=== PATIENT | female | born 2000 | race Caucasian/White ===

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

== ENCOUNTER 2021-08-31 11:13 | Emergency (ER) | payer OTHER ==
[~2021-08-31] VITALS: Ht 170.1 cm; Wt 75.7 kg
[2021-08-31 12:04] LABS: BASO % 0.4 % (0.0-1.0); EOS # 0.1 10*3/uL (0.0-0.4); EOS % 1.1 % (1.0-4.0); HEMATOCRIT 44.4 % (37.0-47.0); LYMPH # 0.8 10*3/uL (1.3-4.4); LYMPH % 6.9 % (27.0-41.0); MEAN CELL VOLUME 90.2 fl (81.0-99.0); MEAN CORPUSCULAR HGB 30.7 pg (27.0-31.0); MEAN PLATELET VOLUME 9.3 fl (9.6-12.3); MONO # 0.8 10*3/uL (0.1-1.0); MONO % 7.3 % (3.0-9.0); NEUT # 9.6 10*3/uL (2.3-7.9); NEUT % 83.9 % (47.0-73.0); PLATELET COUNT AUTOMATED 277 10*3/uL (130-400); RED BLOOD COUNT 4.92 10*6/uL (4.10-5.10); RED CELL DISTRI WIDTH 12.6 % (0-14.5); WHITE BLOOD COUNT 11.4 10*3/uL (4.8-10.8)
[2021-08-31 12:21] LABS: ALKALINE PHOSPHATASE 93 U/L (45-117); BUN 6 mg/dl (7-24); CHLORIDE 110 mmol/L (98-107); CREATININE 0.79 mg/dL (0.55-1.02); LIPASE 72 U/L (73-393); POTASSIUM 3.7 mmol/L (3.5-5.1); SGOT/AST 11 IU/L (3-35); SGPT/ALT 26 U/L (12-78); SODIUM 138 mmol/L (136-145); TOTAL PROTEIN 7.2 gm/dL (6.4-8.2)
[2021-08-31 13:12] LABS: BILIRUBIN Negative (Negative); BLOOD Negative (Negative); CLARITY Clear (Clear); COLOR Dark Yellow (Yellow); GLUCOSE Negative (Negative); KETONE 1+ (Negative); LEUKO ESTERASE Trace (Negative); NITRITE Negative (Negative); SPECIFIC GRAVITY 1.025 (1.001-1.030)
[2021-08-31 13:38] LABS: BACTERIA TRACE; MUCOUS 2+; WBC 0-2 wbc/hpf (0-5)
[2021-08-31] MEDS ORDERED: ZOFRAN4 MG PO (14:28)
== END 2021-08-31 14:51 | disposition home or self-care (01) ==
LOC: ED 11:13
PROVIDERS: Physician Assistant
DX: K52.9 Noninfective gastroenteritis and colitis, unspecified (principal); R11.2 Nausea with vomiting, unspecified; Z79.899 Other long term (current) drug therapy

== ENCOUNTER 2021-12-31 20:49 | Emergency (ER) | payer OTHER ==
[~2021-12-31] VITALS: Ht 170.1 cm; Wt 74.8 kg
[~2021-12-31 20:49] MED LIST changes: -CIPRO500 MG PO; -DICYCLOMINE HYD20 MG PO; -IMODIUM A-D2 M2 PO; -METRONIDAZOLE500 M1 PO; -PANTOPRAZOLE SO40 MG PO
[2021-12-31] MEDS ORDERED: PANTOPRAZOLE SO40 MG PO (21:04)
[2021-12-31] MEDS ORDERED: METRONIDAZOLE500 M1 PO (22:15)
[2021-12-31] MEDS ORDERED: IMODIUM A-D2 M2 PO (22:15)
[2021-12-31] MEDS ORDERED: CIPRO500 MG PO (22:15)
[2021-12-31] MEDS ORDERED: DICYCLOMINE HYD20 MG PO (22:15)
== END 2021-12-31 22:31 | disposition home or self-care (01) ==
LOC: ED 20:49
DX: K52.9 Noninfective gastroenteritis and colitis, unspecified (principal); Z79.899 Other long term (current) drug therapy

== ENCOUNTER → 2021-12-31 | Outpatient (CLI) | payer OTHER ==
[~2021-12-31] MED LIST changes: +CIPRO500 MG PO; +DICYCLOMINE HYD20 MG PO; +IMODIUM A-D2 M2 PO; +METRONIDAZOLE500 M1 PO; +PANTOPRAZOLE SO40 MG PO; +ZOFRAN4 MG PO
== END | disposition home or self-care (01) ==
LOC: CT 12-30 15:00
PROVIDERS: ATTEND Internal Medicine
DX: K63.89 Other specified diseases of intestine (principal); R10.31 Right lower quadrant pain

== ENCOUNTER → 2023-05-30 | Outpatient (CLI) | payer OTHER ==
[~2023-05-30] MED LIST changes: +CIPRO500 MG PO; +DICYCLOMINE HYD20 MG PO; +IMODIUM A-D2 M2 PO; +METRONIDAZOLE500 M1 PO; +PANTOPRAZOLE SO40 MG PO
== END | disposition home or self-care (01) ==
LOC: RAD 10:30
PROVIDERS: ATTEND Nurse Practitioner Primary Care
DX: R76.11 Nonspecific reaction to tuberculin skin test without active tuberculosis (principal)

== ENCOUNTER → 2023-08-14 | Outpatient (CLI) | payer OTHER | END | disposition home or self-care (01) | LOC: US 01:51 | PROVIDERS: ATTEND Nurse Practitioner Primary Care | DX: R22.30 Localized swelling, mass and lump, unspecified upper limb (principal) ==

== ENCOUNTER → 2023-12-05 | Outpatient (CLI) | payer OTHER ==
[2023-12-06 05:07] LABS: HEPATITIS B SURFACE AG Negative (Negative)
[2023-12-06 08:10] LABS: VARICELLA-ZOSTER IGG <135 index (Immune >165)
[2023-12-07 19:16] LABS: TB1 Ag VALUE 0.03 IU/mL (.)
== END ==
LOC: LAB 11:13
PROVIDERS: ATTEND Nurse Practitioner Family
DX: Z02.0 Encounter for examination for admission to educational institution (principal)

== ENCOUNTER → 2024-11-15 | Outpatient (CLI) | payer OTHER | END | disposition home or self-care (01) | LOC: LAB 12:19 | PROVIDERS: ATTEND Nurse Practitioner Family | DX: Z01.89 Encounter for other specified special examinations (principal) ==